=== PATIENT | male | born 1980 | race Caucasian/White ===

== ENCOUNTER 2022-11-01 13:37 | Emergency (ER) | payer OTHER ==
[~2022-11-01] VITALS: Ht 182.9 cm; Wt 84.1 kg
[2022-11-01 13:39] VITALS: BP 119/65
[2022-11-01] MEDS ORDERED: KETOROLAC 30 MG/ML 1ML VIAL IM ONE (15:05)
== END 2022-11-01 15:19 | disposition home or self-care (01) ==
LOC: M ED 13:37
DX: S76.312A Strain of muscle, fascia and tendon of the posterior muscle group at thigh level, left thigh, initial encounter (principal); X50.3XXA Overexertion from repetitive movements, initial encounter; Y92.89 Other specified places as the place of occurrence of the external cause; Y93.02 Activity, running; Y99.1 Military activity
CPT/HCPCS: 96372; 99282; J1885

== ENCOUNTER → 2023-03-23 | Outpatient (CLI) | payer OTHER | LOC: M RAD 07:46 | PROVIDERS: ATTEND Family Medicine | DX: M25.422 Effusion, left elbow (principal) ==

== ENCOUNTER → 2024-06-26 | Outpatient (CLI) | payer OTHER | LOC: M PLARAD 08:42 | PROVIDERS: ATTEND Orthopaedic Surgery Hand Surgery | DX: M54.12 Radiculopathy, cervical region (principal) ==